=== PATIENT | male | born 1935 | race Caucasian/White ===

== ENCOUNTER → 2016-09-18 | Outpatient (REF) | payer MEDICARE, OTHER ==
[~2016-09-18] MED LIST: /WARF25TA; ACET65TA; ALTA1CAP2 PO; ASPI325T28 PO; ASPI81CH; BABY81CH; CARV6.25 PO; COUM2.5T11 PO; EYE VITAMIN; HYDR25TA6; KEFL500C; METH10TA PO; NAPR250T; PERC5TAB6 PO; ROSU10TA PO; SPIR25TA2 PO; TRAM100T; TRAM50TA2; TYLE325T5 PO; ZEBE5TAB
[2016-09-18 12:59] LABS: ANION GAP 7 MEQ/L (8-16); BLOOD UREA NITROGEN 15 MG/DL (7-18); CALCIUM LEVEL 8.9 MG/DL (8.8-10.2); CARBON DIOXIDE LEVEL 30 MEQ/L (21-32); CHLORIDE LEVEL 104 MEQ/L (98-107); CREATININE FOR GFR 0.91 MG/DL (0.70-1.30); GLOMERULAR FILTRATION RATE > 60.0 (>35); GLUCOSE, FASTING 75 MG/DL (83-110); SODIUM LEVEL 141 MEQ/L (136-145)
== END | disposition home or self-care (01) ==
LOC: M SFHCADAM 12:05
PROVIDERS: ATTEND Family Medicine
DX: I11.9 Hypertensive heart disease without heart failure (principal)

== ENCOUNTER → 2016-09-29 | Outpatient (CLI) | payer MEDICARE, OTHER ==
--- NOTE | 2016-09-29 12:38 | REP ---
MR BRAIN WITHOUT AND WITH CONTRAST: HISTORY: Vertigo. CONTRAST: ProHance 14.2 mL. COMPARISON: CT 10/23/2013. Areas of increased signal intensity on T2-weighted images are present in the left thalamus. These represent old lacunar infarctions. Areas of increased signal intensity on T2-weighted images are present in the periventricular and subcortical white matter and shawn. This represents small vessel ischemic disease. There is no intraparenchymal hemorrhage, acute infarct, or midline shift. The ventricular system and cortical sulci are dilated consistent with mild volume loss. There is no extracerebral collection. There is no cerebellopontine angle mass. The inner ear structures are normal in appearance. A 5 mm focus of decreased signal intensity on contrast enhanced T1-weighted images is present in the pituitary gland. There is minimal deviation of the infundibulum to the right. The cavernous sinuses, optic chiasm, and hypothalamus are normal in appearance. The mastoid air cells and sinuses are clear. IMPRESSION: 1. 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 2. Small vessel ischemic disease. 3. Moderate volume loss. 4. There is a 5 mm pituitary microadenoma. MR of the pituitary gland may be helpful for further evaluation. Signed by Sid Silver MD 09/29/2016 12:42 P
== END | disposition home or self-care (01) ==
LOC: M RAD 09:57
PROVIDERS: ATTEND Family Medicine
DX: H81.03 Meniere's disease, bilateral (principal); I73.9 Peripheral vascular disease, unspecified; D44.3 Neoplasm of uncertain behavior of pituitary gland
CPT/HCPCS: 70553; A9576

== ENCOUNTER → 2016-10-14 | Outpatient (CLI) | payer MEDICARE, OTHER ==
--- NOTE | 2016-10-14 18:22 | REP ---
MRI BRAIN WITHOUT AND WITH CONTRAST: HISTORY: Pituitary microadenoma. CONTRAST: ProHance 10 mL. COMPARISON: 09/29/2016 Areas of increased signal intensity on T2-weighted images are present in the left thalamus. These represent old lacunar infarctions. Areas of increased signal intensity on T2-weighted images are present in the periventricular and subcortical white matter and shawn. This represents small vessel ischemic disease. There is no intraparenchymal hemorrhage, infarct, or midline shift. The ventricular system and cortical sulci are dilated consistent with mild volume loss. There is no extracerebral collection. A 5 mm focus of slight increased signal intensity on unenhanced T1-weighted images is present in the left side of the pituitary gland. This represents a microadenoma. The microadenoma is slightly decreased in signal intensity on contrast enhanced T1 weighted images. There is minimal extension into the suprasellar cistern. There is minimal deviation of the infundibulum to the right. The pituitary gland is normal in size measuring 8 mm in height. The cavernous sinuses, optic chiasm and hypothalamus are normal in appearance. The sinuses are clear. IMPRESSION: 1. 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 2. Small vessel ischemic disease. 3. Mild volume loss. 4. There is a 5 mm pituitary microadenoma. Signed by Sid Silver MD 10/15/2016 08:17 A
== END ==
LOC: M RAD 15:15
PROVIDERS: ATTEND Family Medicine
DX: D35.2 Benign neoplasm of pituitary gland (principal)
CPT/HCPCS: 70553; A9576

== ENCOUNTER → 2016-11-19 | Outpatient (REF) | payer MEDICARE, OTHER ==
[2016-11-19 16:48] LABS: FREE T4 0.62 NG/DL (0.76-1.46)
== END ==
LOC: M SFHCPLAZ 13:15
PROVIDERS: ATTEND Family Medicine
DX: D34 Benign neoplasm of thyroid gland (principal)

== ENCOUNTER → 2016-12-02 | Outpatient (REF) | payer MEDICARE, OTHER ==
[~2016-12-02] MED LIST changes: +CRES10TA32 PO; -ROSU10TA PO
[2016-12-02 12:30] LABS: MEAN CORPUSCULAR HEMOGLOBIN 29.9 pg (27.0-33.0); MEAN CORPUSCULAR HGB CONC 32.3 g/dl (32.0-36.5); MEAN CORPUSCULAR VOLUME 92.8 fl (80.0-96.0); RED CELL DISTRIBUTION WIDTH 12.9 % (11.5-14.5); RETIC HEMOGLOBIN CONTENT CHr 31.3 PG (24-36); RETICULOCYTE % ADVIA2120 1.4 % (0.5-1.5); WHITE BLOOD COUNT 4.8 K/mm3 (4.0-10.0)
[2016-12-02 12:42] LABS: ALBUMIN 4.1 GM/DL (3.2-5.2); ALBUMIN/GLOBULIN RATIO 1.32 (1.00-1.93); ALKALINE PHOSPHATASE 104 U/L (45-117); ALT/SGPT 25 U/L (12-78); ANION GAP 9 MEQ/L (8-16); AST/SGOT 18 U/L (15-37); BILIRUBIN,TOTAL 0.4 MG/DL (0.2-1.0); BLOOD UREA NITROGEN 13 MG/DL (7-18); CALCIUM LEVEL 8.8 MG/DL (8.8-10.2); CARBON DIOXIDE LEVEL 27 MEQ/L (21-32); CHLORIDE LEVEL 107 MEQ/L (98-107); CREATININE FOR GFR 0.96 MG/DL (0.70-1.30); FERRITIN 41 NG/ML (26-388); GLOMERULAR FILTRATION RATE > 60.0 (>35); GLUCOSE, FASTING 90 MG/DL (83-110); PERCENT SATURATION 27.8 % (19.7-37.4); POTASSIUM SERUM 4.3 MEQ/L (3.5-5.1); SODIUM LEVEL 143 MEQ/L (136-145); TOTAL IRON BINDING CAPACITY 374 UG/DL (250-450); TOTAL PROTEIN 7.2 GM/DL (6.4-8.2)
[2016-12-02 12:46] LABS: PROLACTIN 6.5 NG/ML (2.1-17.7)
[2016-12-02 12:47] LABS: FOLATE 22.4 NG/ML (>5.4); VITAMIN B12 LEVEL 243 PG/ML (247-911)
== END ==
LOC: M SFHCADAM 09:15
PROVIDERS: ATTEND Family Medicine
DX: D35.2 Benign neoplasm of pituitary gland (principal); D64.9 Anemia, unspecified; I11.9 Hypertensive heart disease without heart failure; R73.03 Prediabetes
CPT/HCPCS: 80053; 80061; 82024; 82607; 82728; 82746; 83003; 83036; 83550; 84146; 85027; 85046; G0463

== ENCOUNTER → 2016-12-28 | Outpatient (REF) | payer MEDICARE, OTHER ==
[2016-12-28 13:07] LABS: FREE T4 0.72 NG/DL (0.76-1.46)
== END ==
LOC: M LABDRWAD 12:18
PROVIDERS: ATTEND Internal Medicine Endocrinology, Diabetes & Metabolism
DX: E05.90 Thyrotoxicosis, unspecified without thyrotoxic crisis or storm (principal)

== ENCOUNTER → 2017-02-24 | Outpatient (REF) | payer MEDICARE, OTHER ==
[~2017-02-24] MED LIST changes: -COUM2.5T11 PO; +COUM2.5T17 PO; +METH25TAB PO; +NITR0.4S14 PO; +PERC5TAB12 PO; -PERC5TAB6 PO
[2017-02-24 15:17] LABS: ALBUMIN 4.1 GM/DL (3.2-5.2); ALBUMIN/GLOBULIN RATIO 1.46 (1.00-1.93); ALKALINE PHOSPHATASE 99 U/L (45-117); ALT/SGPT 25 U/L (12-78); ANION GAP 7 MEQ/L (8-16); AST/SGOT 19 U/L (15-37); BILIRUBIN,TOTAL 0.4 MG/DL (0.2-1.0); BLOOD UREA NITROGEN 16 MG/DL (7-18); CALCIUM LEVEL 8.6 MG/DL (8.8-10.2); CARBON DIOXIDE LEVEL 30 MEQ/L (21-32); CHLORIDE LEVEL 106 MEQ/L (98-107); CHOLESTEROL LEVEL 93 MG/DL (<200); CREATININE FOR GFR 0.95 MG/DL (0.70-1.30); GLOMERULAR FILTRATION RATE > 60.0 (>35); GLUCOSE, FASTING 95 MG/DL (83-110); POTASSIUM SERUM 4.7 MEQ/L (3.5-5.1); SODIUM LEVEL 143 MEQ/L (136-145); TOTAL PROTEIN 6.9 GM/DL (6.4-8.2); TRIGLYCERIDES LEVEL 119 MG/DL (<150)
== END ==
LOC: M SFHCADAM 08:44
PROVIDERS: ATTEND Family Medicine
DX: E78.2 Mixed hyperlipidemia (principal); D34 Benign neoplasm of thyroid gland

== ENCOUNTER → 2017-03-03 | Outpatient (REF) | payer MEDICARE, OTHER ==
[2017-03-03 13:11] LABS: FREE T4 0.89 NG/DL (0.76-1.46)
== END ==
LOC: M SFHCADAM 08:46
PROVIDERS: ATTEND Family Medicine
DX: E04.9 Nontoxic goiter, unspecified (principal); D34 Benign neoplasm of thyroid gland
CPT/HCPCS: 84439; 84443; G0463

== ENCOUNTER 2017-04-15 06:31 | Outpatient (CLI) | payer MEDICARE, OTHER ==
[~2017-04-15] VITALS: Ht 188 cm; Wt 99.8 kg
[2017-04-15] MEDS ORDERED: NS 1,000 ML IV SCH (07:00)
[2017-04-15] MEDS ORDERED: PROPOFOL 200 MG/20 ML VIAL As Ordered ONE (07:02)
[2017-04-15] MEDS ORDERED: LIDOCAINE 2% INJ 100 MG/5 ML SDV (FOR ANES.) As Ordered ONE (07:04)
[2017-04-15 07:52] VITALS: BP 112/64
--- NOTE | 2017-04-15 07:52 | ROOR ---
Patient Name: Jesse Henderson Procedure Date: 04/15/2017 7:32 AM Date of : 1935 Age: 81 Room: [facility] Gender: Male Note Status: Finalized Procedure: Colonoscopy Indications: High risk colon cancer surveillance: Personal history of colonic polyps, Last colonoscopy: March 2014 Providers: Owen CAZARES MD Referring MD: Liam Torres MD Requesting Provider: Medicines: Monitored Anesthesia Care Complications: No immediate complications. Procedure: Pre-Anesthesia Assessment: - The heart rate, respiratory rate, oxygen saturations, blood pressure, adequacy of pulmonary ventilation, and response to care were monitored throughout the procedure. The Colonoscope was introduced through the anus and advanced to the cecum, identified by appendiceal orifice and ileocecal valve. The colonoscopy was performed without difficulty. The patient tolerated the procedure well. The quality of the bowel preparation was good. Findings: The perianal and digital rectal examinations were normal. Two sessile polyps were found in the sigmoid colon and hepatic flexure. The polyps were 4 to 5 mm in size. These polyps were removed with a cold snare. Resection and retrieval were complete. Multiple medium-mouthed diverticula were found in the sigmoid colon. Internal hemorrhoids were found during retroflexion. The hemorrhoids were medium-sized. The exam was otherwise without abnormality on direct and retroflexion views. Impression: - Two 4 to 5 mm polyps in the sigmoid colon and at the hepatic flexure, removed with a cold snare. Resected and retrieved. - Moderate diverticulosis in the sigmoid colon. - Internal hemorrhoids. - The examination was otherwise normal on direct and retroflexion views. Recommendation: - Repeat colonoscopy (depending on health status) in 5 years for surveillance. Owen Cazares MD Owen CAZARES MD 04/15/2017 7:51:30 AM This report has been signed electronically. Number of Addenda: 0 Note Initiated On: 04/15/2017 7:32 AM Estimated Blood Loss: Estimated blood loss: none.
== END 2017-04-15 08:22 | disposition home or self-care (01) ==
LOC: M OPP 06:31
PROVIDERS: ATTEND Internal Medicine Gastroenterology
DX: Z12.11 Encounter for screening for malignant neoplasm of colon (principal); D12.5 Benign neoplasm of sigmoid colon; D12.3 Benign neoplasm of transverse colon; K64.8 Other hemorrhoids; K57.30 Diverticulosis of large intestine without perforation or abscess without bleeding; I10 Essential (primary) hypertension; E87.5 Hyperkalemia; E03.9 Hypothyroidism, unspecified; I25.2 Old myocardial infarction; M19.90 Unspecified osteoarthritis, unspecified site; Z85.46 Personal history of malignant neoplasm of prostate; Z95.5 Presence of coronary angioplasty implant and graft; Z87.891 Personal history of nicotine dependence; Z79.82 Long term (current) use of aspirin; Z79.899 Other long term (current) drug therapy

== ENCOUNTER → 2017-07-05 | Outpatient (REF) | payer MEDICARE, OTHER ==
[2017-07-05 13:00] LABS: MEAN CORPUSCULAR HEMOGLOBIN 29.9 pg (27.0-33.0); MEAN CORPUSCULAR HGB CONC 31.6 g/dl (32.0-36.5); MEAN CORPUSCULAR VOLUME 94.5 fl (80.0-96.0); PLATELET COUNT, AUTOMATED 174 10^3/uL (150-450); RED CELL DISTRIBUTION WIDTH 13.4 % (11.5-14.5); WHITE BLOOD COUNT 5.2 10^3/uL (4.0-10.0)
[2017-07-05 13:21] LABS: VITAMIN B12 LEVEL 1218 PG/ML (247-911)
[2017-07-05 13:38] LABS: ALBUMIN 3.8 GM/DL (3.2-5.2); ALBUMIN/GLOBULIN RATIO 1.27 (1.00-1.93); ALKALINE PHOSPHATASE 86 U/L (45-117); ALT/SGPT 28 U/L (12-78); ANION GAP 5 MEQ/L (8-16); AST/SGOT 18 U/L (7-37); BILIRUBIN,TOTAL 0.5 MG/DL (0.2-1.0); BLOOD UREA NITROGEN 15 MG/DL (7-18); CALCIUM LEVEL 8.8 MG/DL (8.8-10.2); CARBON DIOXIDE LEVEL 30 MEQ/L (21-32); CHLORIDE LEVEL 107 MEQ/L (98-107); CREATININE FOR GFR 0.84 MG/DL (0.70-1.30); FREE T4 1.27 NG/DL (0.76-1.46); GLOMERULAR FILTRATION RATE > 60.0 (>35); GLUCOSE, FASTING 94 MG/DL (83-110); POTASSIUM SERUM 4.6 MEQ/L (3.5-5.1); SODIUM LEVEL 142 MEQ/L (136-145); TOTAL PROTEIN 6.8 GM/DL (6.4-8.2)
== END ==
LOC: M SFHCADAM 09:21
PROVIDERS: ATTEND Family Medicine
DX: D51.8 Other vitamin B12 deficiency anemias (principal); I25.10 Atherosclerotic heart disease of native coronary artery without angina pectoris; E04.9 Nontoxic goiter, unspecified

== ENCOUNTER → 2017-09-27 | Outpatient (REF) | payer MEDICARE, OTHER ==
[2017-09-27 20:09] LABS: ANION GAP 8 MEQ/L (8-16); BLOOD UREA NITROGEN 14 MG/DL (7-18); CALCIUM LEVEL 8.9 MG/DL (8.8-10.2); CARBON DIOXIDE LEVEL 28 MEQ/L (21-32); CHLORIDE LEVEL 105 MEQ/L (98-107); CREATININE FOR GFR 0.94 MG/DL (0.70-1.30); GLOMERULAR FILTRATION RATE > 60.0 (>35); GLUCOSE, FASTING 111 MG/DL (70-100); POTASSIUM SERUM 4.4 MEQ/L (3.5-5.1); SODIUM LEVEL 141 MEQ/L (136-145)
== END ==
LOC: M SFHCADAM 13:45
DX: D34 Benign neoplasm of thyroid gland (principal)
CPT/HCPCS: 80048

== ENCOUNTER → 2017-10-06 | Outpatient (CLI) | payer MEDICARE, OTHER ==
[~2017-10-06] MED LIST changes: -/WARF25TA; -ACET65TA; -ALTA1CAP2 PO; -ASPI325T28 PO; -ASPI81CH; -BABY81CH; -CARV6.25 PO; -COUM2.5T17 PO; -CRES10TA32 PO; -EYE VITAMIN; -HYDR25TA6; -KEFL500C; -METH10TA PO; -METH25TAB PO; -NAPR250T; -NITR0.4S14 PO; -PERC5TAB12 PO; +PROHANCE 279.3MG/ML 5ML VIAL (A9576) As Ordered; -SPIR25TA2 PO; -TRAM100T; -TRAM50TA2; -TYLE325T5 PO; -ZEBE5TAB
== END ==
LOC: M RAD 11:07
DX: Z86.73 Personal history of transient ischemic attack (TIA), and cerebral infarction without residual deficits (principal); I67.82 Cerebral ischemia
CPT/HCPCS: A9576

== ENCOUNTER → 2018-01-26 | Outpatient (REF) | payer MEDICARE, OTHER ==
[2018-01-26 12:36] LABS: HEMATOCRIT 41.8 % (42.0-52.0); HEMOGLOBIN 13.4 g/dl (13.5-17.5); MEAN CORPUSCULAR HEMOGLOBIN 29.8 pg (27.0-33.0); MEAN CORPUSCULAR HGB CONC 32.1 g/dl (32.0-36.5); MEAN CORPUSCULAR VOLUME 92.9 fl (80.0-96.0); PLATELET COUNT, AUTOMATED 174 10^3/uL (150-450); RED CELL DISTRIBUTION WIDTH 14.1 % (11.5-14.5); WHITE BLOOD COUNT 6.2 10^3/uL (4.0-10.0)
[2018-01-26 13:02] LABS: ALBUMIN 4.2 GM/DL (3.2-5.2); ALKALINE PHOSPHATASE 93 U/L (45-117); ALT/SGPT 23 U/L (12-78); ANION GAP 7 MEQ/L (8-16); AST/SGOT 21 U/L (7-37); BILIRUBIN,TOTAL 0.4 MG/DL (0.2-1.0); BLOOD UREA NITROGEN 16 MG/DL (7-18); CALCIUM LEVEL 8.9 MG/DL (8.8-10.2); CARBON DIOXIDE LEVEL 28 MEQ/L (21-32); CHLORIDE LEVEL 109 MEQ/L (98-107); CHOLESTEROL LEVEL 96 MG/DL (<200); CHOLESTEROL RISK RATIO 2.341 (<5); CREATININE FOR GFR 0.84 MG/DL (0.70-1.30); FREE T4 0.86 NG/DL (0.76-1.46); GLOMERULAR FILTRATION RATE > 60.0 (>35); GLUCOSE, FASTING 91 MG/DL (70-100); HDL CHOLESTEROL 41 MG/DL (>40); LDL CHOLESTEROL 28.4 MG/DL (<100); NON-HDL-C 55 MG/DL; POTASSIUM SERUM 4.9 MEQ/L (3.5-5.1); SODIUM LEVEL 144 MEQ/L (136-145); THYROID STIMULATING HORMONE 0.329 uIU/ML (0.358-3.740); TRIGLYCERIDES LEVEL 133 MG/DL (<150)
== END ==
LOC: M SFHCADAM 10:09
DX: I25.10 Atherosclerotic heart disease of native coronary artery without angina pectoris (principal); E05.90 Thyrotoxicosis, unspecified without thyrotoxic crisis or storm; E78.2 Mixed hyperlipidemia
CPT/HCPCS: 84443

== ENCOUNTER 2018-04-18 09:28 | Emergency (ER) | payer MEDICARE, OTHER | END 2018-04-18 10:33 | disposition home or self-care (01) | LOC: M ED 09:28 | DX: M19.011 Primary osteoarthritis, right shoulder (principal); I25.2 Old myocardial infarction; I10 Essential (primary) hypertension; E05.90 Thyrotoxicosis, unspecified without thyrotoxic crisis or storm; Z85.46 Personal history of malignant neoplasm of prostate; Z87.891 Personal history of nicotine dependence; Z79.82 Long term (current) use of aspirin; Z79.899 Other long term (current) drug therapy; Z88.8 Allergy status to other drugs, medicaments and biological substances | CPT/HCPCS: 73030 ==

== ENCOUNTER → 2018-04-21 | Outpatient (REF) | payer MEDICARE, OTHER ==
[2018-04-21 20:53] LABS: BASO % 0.5 % (0.0-1.0); EOS # 0.1 10^3/uL (0.0-0.50); EOS % 2.5 % (0.0-3.0); HEMATOCRIT 42.3 % (42.0-52.0); HEMOGLOBIN 13.6 g/dl (13.5-17.5); IMMATURE GRANULOCYTE % 0.2 % (0-3.0); LYMPH # 1.4 10^3/uL (1.5-4.5); LYMPH % 25.4 % (24.0-44.0); MEAN CORPUSCULAR HEMOGLOBIN 30.2 pg (27.0-33.0); MEAN CORPUSCULAR HGB CONC 32.2 g/dl (32.0-36.5); MONO # 0.4 10^3/uL (0.0-0.8); MONO % 7.8 % (0.0-5.0); NEUTROPHILS # 3.6 10^3/uL (1.8-7.7); NEUTROPHILS % 63.6 % (36.0-66.0); PLATELET COUNT, AUTOMATED 173 10^3/uL (150-450); RED CELL DISTRIBUTION WIDTH 12.5 % (11.5-14.5); WHITE BLOOD COUNT 5.6 10^3/uL (4.0-10.0)
[2018-04-21 21:05] LABS: ALBUMIN 4.1 GM/DL (3.2-5.2); ALBUMIN/GLOBULIN RATIO 1.24 (1.00-1.93); ALKALINE PHOSPHATASE 72 U/L (45-117); ALT/SGPT 22 U/L (12-78); AST/SGOT 17 U/L (7-37); BILIRUBIN,DIRECT 0.2 MG/DL (0.0-0.2); BILIRUBIN,TOTAL 0.5 MG/DL (0.2-1.0); FREE T3 3.4 PG/ML (2.2-4.0); FREE T4 0.79 NG/DL (0.76-1.46); THYROID STIMULATING HORMONE 0.321 uIU/ML (0.358-3.740); TOTAL PROTEIN 7.4 GM/DL (6.4-8.2)
== END ==
LOC: M LAB REF 20:06
DX: E05.90 Thyrotoxicosis, unspecified without thyrotoxic crisis or storm (principal)
CPT/HCPCS: 84443

== ENCOUNTER → 2018-09-08 | Outpatient (REF) | payer MEDICARE, OTHER ==
[~2018-09-08] MED LIST changes: +ACET-716 PO; +ACET65TA; +ALTA1CAP2 PO; +ASPI-222 PO; +ASPI81CH49; +BABY81CH; +CARV6.25 PO; +COUM1TAB18; +COUM2.5T17 PO; +CRES10TA PO; +EYE VITAMIN; +HYDR25TA6; +KEFL500C; +METH10TA PO; +METH25TAB PO; +NAPR250T; +NITR0.4S14 PO; +PERC5TAB12 PO; -PROHANCE 279.3MG/ML 5ML VIAL (A9576) As Ordered; +SPIR-10 PO; +TRAM100T; +TRAM50TA2; +TYLE325T5 PO; +ZEBE5TAB
== END ==
LOC: M SFHCPLAZ 17:48
PROVIDERS: ATTEND Dermatology
DX: D23.21 Other benign neoplasm of skin of right ear and external auricular canal (principal)

== ENCOUNTER → 2019-01-19 | Outpatient (REF) | payer MEDICARE, OTHER ==
[2019-01-19 13:09] LABS: HEMATOCRIT 40.8 % (42.0-52.0); HEMOGLOBIN 12.9 g/dl (13.5-17.5); MEAN CORPUSCULAR HEMOGLOBIN 30.4 pg (27.0-33.0); MEAN CORPUSCULAR HGB CONC 31.6 g/dl (32.0-36.5); PLATELET COUNT, AUTOMATED 167 10^3/uL (150-450); RED BLOOD COUNT 4.25 10^6/uL (4.30-6.10); WHITE BLOOD COUNT 5.2 10^3/uL (4.0-10.0)
[2019-01-19 13:48] LABS: ALBUMIN 3.8 GM/DL (3.2-5.2); ALT/SGPT 18 U/L (12-78); BILIRUBIN,TOTAL 0.5 MG/DL (0.2-1.0); BLOOD UREA NITROGEN 17 MG/DL (7-18); CALCIUM LEVEL 8.5 MG/DL (8.8-10.2); CARBON DIOXIDE LEVEL 27 MEQ/L (21-32); CHLORIDE LEVEL 108 MEQ/L (98-107); CHOLESTEROL LEVEL 86 MG/DL (<200); CREATININE FOR GFR 0.84 MG/DL (0.70-1.30); FREE T4 0.78 NG/DL (0.76-1.46); GLOMERULAR FILTRATION RATE > 60.0 (>35); GLUCOSE, FASTING 95 MG/DL (70-100); HDL CHOLESTEROL 43 MG/DL (>40); LDL CHOLESTEROL 28 MG/DL (<100); NON-HDL-C 43 MG/DL; POTASSIUM SERUM 4.8 MEQ/L (3.5-5.1); PROSTATIC SPECIFIC AG MONITOR 0.91 NG/ML (< 4.00); SODIUM LEVEL 142 MEQ/L (136-145); THYROID STIMULATING HORMONE 0.327 uIU/ML (0.358-3.740); TOTAL PROTEIN 6.9 GM/DL (6.4-8.2); TRIGLYCERIDES LEVEL 77 MG/DL (<150)
== END ==
LOC: M SFHCADAM 08:04
PROVIDERS: ATTEND Family Medicine
DX: I25.10 Atherosclerotic heart disease of native coronary artery without angina pectoris (principal); E78.2 Mixed hyperlipidemia; E04.9 Nontoxic goiter, unspecified; E05.90 Thyrotoxicosis, unspecified without thyrotoxic crisis or storm; C61 Malignant neoplasm of prostate

== ENCOUNTER → 2019-03-09 | Outpatient (REF) | payer MEDICARE, OTHER ==
[2019-03-09 13:38] LABS: FREE T4 0.97 NG/DL (0.76-1.46); THYROID STIMULATING HORMONE 0.009 uIU/ML (0.358-3.740)
== END ==
LOC: M SFHCADAM 07:52
PROVIDERS: ATTEND Family Medicine
DX: E04.9 Nontoxic goiter, unspecified (principal); E05.90 Thyrotoxicosis, unspecified without thyrotoxic crisis or storm

== ENCOUNTER → 2019-07-18 | Outpatient (REF) | payer MEDICARE, OTHER ==
[~2019-07-18] MED LIST changes: -ASPI-222 PO; +ASPI-527 PO
[2019-07-18 12:44] LABS: HEMATOCRIT 40.4 % (42.0-52.0); HEMOGLOBIN 12.7 g/dl (13.5-17.5); MEAN CORPUSCULAR HEMOGLOBIN 29.5 pg (27.0-33.0); MEAN CORPUSCULAR HGB CONC 31.4 g/dl (32.0-36.5); MEAN CORPUSCULAR VOLUME 93.7 fl (80.0-96.0); PLATELET COUNT, AUTOMATED 156 10^3/uL (150-450); RED BLOOD COUNT 4.31 10^6/uL (4.30-6.10); WHITE BLOOD COUNT 5.5 10^3/uL (4.0-10.0)
[2019-07-18 13:03] LABS: ALBUMIN 3.8 GM/DL (3.2-5.2); ALT/SGPT 20 U/L (12-78); BILIRUBIN,TOTAL 0.6 MG/DL (0.2-1.0); BLOOD UREA NITROGEN 17 MG/DL (7-18); CALCIUM LEVEL 8.7 MG/DL (8.8-10.2); CARBON DIOXIDE LEVEL 29 MEQ/L (21-32); CHLORIDE LEVEL 105 MEQ/L (98-107); CREATININE FOR GFR 0.84 MG/DL (0.70-1.30); FREE T4 1.02 NG/DL (0.76-1.46); GLOMERULAR FILTRATION RATE > 60.0 (>35); GLUCOSE, FASTING 116 MG/DL (70-100); POTASSIUM SERUM 4.4 MEQ/L (3.5-5.1); SODIUM LEVEL 141 MEQ/L (136-145); THYROID STIMULATING HORMONE < 0.005 uIU/ML (0.358-3.740)
== END ==
LOC: M LAB REF 12:18
PROVIDERS: ATTEND Family Medicine
DX: E04.9 Nontoxic goiter, unspecified (principal); I25.10 Atherosclerotic heart disease of native coronary artery without angina pectoris; I11.9 Hypertensive heart disease without heart failure

== ENCOUNTER → 2019-08-29 | Outpatient (REF) | payer MEDICARE, OTHER ==
[2019-08-29 14:08] LABS: FREE T4 1.36 NG/DL (0.76-1.46); THYROID STIMULATING HORMONE < 0.005 uIU/ML (0.358-3.740)
== END ==
LOC: M SFHCADAM 08:39
PROVIDERS: ATTEND Family Medicine
DX: E04.9 Nontoxic goiter, unspecified (principal)

== ENCOUNTER → 2020-01-31 | Outpatient (REF) | payer MEDICARE, OTHER ==
[2020-01-31 13:17] LABS: HEMATOCRIT 37.6 % (42.0-52.0); MEAN CORPUSCULAR HEMOGLOBIN 29.7 pg (27.0-33.0); MEAN CORPUSCULAR HGB CONC 31.9 g/dl (32.0-36.5); MEAN CORPUSCULAR VOLUME 93.1 fl (80.0-96.0); PLATELET COUNT, AUTOMATED 172 10^3/uL (150-450); RED BLOOD COUNT 4.04 10^6/uL (4.30-6.10)
[2020-01-31 13:56] LABS: ALBUMIN 3.7 GM/DL (3.2-5.2); ALT/SGPT 32 U/L (12-78); BILIRUBIN,TOTAL 0.5 MG/DL (0.2-1.0); BLOOD UREA NITROGEN 15 MG/DL (7-18); CARBON DIOXIDE LEVEL 27 MEQ/L (21-32); CHLORIDE LEVEL 109 MEQ/L (98-107); CHOLESTEROL LEVEL 83 MG/DL (<200); CHOLESTEROL RISK RATIO 2.075 (<5); CREATININE FOR GFR 0.86 MG/DL (0.70-1.30); FREE T4 1.43 NG/DL (0.76-1.46); GLOMERULAR FILTRATION RATE > 60.0 (>35); GLUCOSE, FASTING 94 MG/DL (70-100); HDL CHOLESTEROL 40 MG/DL (>40); LDL CHOLESTEROL 29 MG/DL (<100); NON-HDL-C 43 MG/DL; POTASSIUM SERUM 4.8 MEQ/L (3.5-5.1); PROSTATIC SPECIFIC AG MONITOR 1.09 NG/ML (< 4.00); SODIUM LEVEL 142 MEQ/L (136-145); THYROID STIMULATING HORMONE < 0.005 uIU/ML (0.358-3.740); TOTAL PROTEIN 6.7 GM/DL (6.4-8.2); TRIGLYCERIDES LEVEL 69 MG/DL (<150)
== END ==
LOC: M SFHCADAM 11:08
PROVIDERS: ATTEND Family Medicine
DX: I25.10 Atherosclerotic heart disease of native coronary artery without angina pectoris (principal); I11.9 Hypertensive heart disease without heart failure; E04.9 Nontoxic goiter, unspecified; E78.2 Mixed hyperlipidemia; C61 Malignant neoplasm of prostate; I48.0 Paroxysmal atrial fibrillation

== ENCOUNTER → 2020-01-31 | Outpatient (REF) | payer MEDICARE, OTHER ==
[2020-01-31 13:22] LABS: HEMATOCRIT 38.5 % (42.0-52.0); HEMOGLOBIN 12.3 g/dl (13.5-17.5); MEAN CORPUSCULAR HEMOGLOBIN 29.9 pg (27.0-33.0); MEAN CORPUSCULAR HGB CONC 31.9 g/dl (32.0-36.5); MEAN CORPUSCULAR VOLUME 93.7 fl (80.0-96.0); PLATELET COUNT, AUTOMATED 180 10^3/uL (150-450); RED BLOOD COUNT 4.11 10^6/uL (4.30-6.10)
[2020-01-31 13:56] LABS: BLOOD UREA NITROGEN 16 MG/DL (7-18); CREATININE FOR GFR 0.81 MG/DL (0.70-1.30); GLUCOSE, FASTING 91 MG/DL (70-100)
[2020-01-31 13:57] LABS: CALCIUM LEVEL 9.3 MG/DL (8.8-10.2); CARBON DIOXIDE LEVEL 27 MEQ/L (21-32); CHLORIDE LEVEL 108 MEQ/L (98-107); GLOMERULAR FILTRATION RATE > 60.0 (>35); MAGNESIUM LEVEL 2.1 MG/DL (1.8-2.4); POTASSIUM SERUM 4.8 MEQ/L (3.5-5.1); SODIUM LEVEL 140 MEQ/L (136-145); THYROID STIMULATING HORMONE < 0.005 uIU/ML (0.358-3.740)
== END ==
LOC: M LABDRWAD 12:52
PROVIDERS: ATTEND Physician Assistant
DX: I48.0 Paroxysmal atrial fibrillation (principal)

== ENCOUNTER → 2020-03-01 | Outpatient (REF) | payer MEDICARE, OTHER ==
[2020-03-01 12:54] LABS: HEMATOCRIT 41.7 % (42.0-52.0); HEMOGLOBIN 13.1 g/dl (13.5-17.5); MEAN CORPUSCULAR HEMOGLOBIN 29.6 pg (27.0-33.0); MEAN CORPUSCULAR HGB CONC 31.4 g/dl (32.0-36.5); MEAN CORPUSCULAR VOLUME 94.1 fl (80.0-96.0); PLATELET COUNT, AUTOMATED 180 10^3/uL (150-450); RED BLOOD COUNT 4.43 10^6/uL (4.30-6.10); WHITE BLOOD COUNT 5.6 10^3/uL (4.0-10.0)
== END ==
LOC: M LABDRWAD 12:33
PROVIDERS: ATTEND Physician Assistant
DX: I48.0 Paroxysmal atrial fibrillation (principal)

== ENCOUNTER → 2020-08-02 | Outpatient (REF) | payer MEDICARE, OTHER ==
[2020-08-02 11:54] LABS: HEMATOCRIT 43.3 % (42.0-52.0); HEMOGLOBIN 13.7 g/dl (13.5-17.5); MEAN CORPUSCULAR HEMOGLOBIN 30.4 pg (27.0-33.0); MEAN CORPUSCULAR HGB CONC 31.6 g/dl (32.0-36.5); MEAN CORPUSCULAR VOLUME 96.2 fl (80.0-96.0); PLATELET COUNT, AUTOMATED 182 10^3/uL (150-450); WHITE BLOOD COUNT 7.5 10^3/uL (4.0-10.0)
[2020-08-02 12:14] LABS: ALBUMIN 3.8 GM/DL (3.2-5.2); ALT/SGPT 31 U/L (12-78); BILIRUBIN,TOTAL 0.5 MG/DL (0.2-1.0); BLOOD UREA NITROGEN 20 MG/DL (7-18); CALCIUM LEVEL 9.4 MG/DL (8.8-10.2); CARBON DIOXIDE LEVEL 28 MEQ/L (21-32); CHLORIDE LEVEL 106 MEQ/L (98-107); CHOLESTEROL LEVEL 88 MG/DL (<200); CHOLESTEROL RISK RATIO 1.833 (<5); CREATININE FOR GFR 1.06 MG/DL (0.70-1.30); FREE T4 0.81 NG/DL (0.76-1.46); GLOMERULAR FILTRATION RATE > 60.0 (>35); GLUCOSE, FASTING 90 MG/DL (70-100); HDL CHOLESTEROL 48 MG/DL (>40); LDL CHOLESTEROL 29 MG/DL (<100); NON-HDL-C 40 MG/DL; POTASSIUM SERUM 4.4 MEQ/L (3.5-5.1); PROSTATIC SPECIFIC AG MONITOR 1.28 NG/ML (< 4.00); SODIUM LEVEL 138 MEQ/L (136-145); THYROID STIMULATING HORMONE 0.982 uIU/ML (0.358-3.740); TOTAL PROTEIN 7.1 GM/DL (6.4-8.2); TRIGLYCERIDES LEVEL 56 MG/DL (<150)
== END ==
LOC: M SFHCADAM 09:11
PROVIDERS: ATTEND Family Medicine
DX: I48.0 Paroxysmal atrial fibrillation (principal); I11.9 Hypertensive heart disease without heart failure; E04.9 Nontoxic goiter, unspecified; E05.90 Thyrotoxicosis, unspecified without thyrotoxic crisis or storm; E78.2 Mixed hyperlipidemia; C61 Malignant neoplasm of prostate

== ENCOUNTER → 2021-03-03 | Outpatient (REF) | payer MEDICARE, OTHER ==
[2021-03-03 12:37] LABS: HEMATOCRIT 39.8 % (42.0-52.0); HEMOGLOBIN 12.6 g/dl (13.5-17.5); MEAN CORPUSCULAR HEMOGLOBIN 30.1 pg (27.0-33.0); MEAN CORPUSCULAR HGB CONC 31.7 g/dl (32.0-36.5); MEAN CORPUSCULAR VOLUME 95.2 fl (80.0-96.0); PLATELET COUNT, AUTOMATED 163 10^3/uL (150-450); RED BLOOD COUNT 4.18 10^6/uL (4.30-6.10); WHITE BLOOD COUNT 5.6 10^3/uL (4.0-10.0)
[2021-03-03 13:21] LABS: ALBUMIN 3.9 GM/DL (3.2-5.2); ALT/SGPT 31 U/L (12-78); BILIRUBIN,TOTAL 0.4 MG/DL (0.2-1.0); BLOOD UREA NITROGEN 15 MG/DL (7-18); CARBON DIOXIDE LEVEL 28 MEQ/L (21-32); CHLORIDE LEVEL 108 MEQ/L (98-107); CHOLESTEROL LEVEL 90 MG/DL (<200); CHOLESTEROL RISK RATIO 2.045 (<5); CREATININE FOR GFR 0.79 MG/DL (0.70-1.30); FREE T4 0.78 NG/DL (0.76-1.46); GLOMERULAR FILTRATION RATE > 60.0 (>35); GLUCOSE, FASTING 99 MG/DL (70-100); HDL CHOLESTEROL 44 MG/DL (>40); LDL CHOLESTEROL 34 MG/DL (<100); NON-HDL-C 46 MG/DL; POTASSIUM SERUM 4.8 MEQ/L (3.5-5.1); PROSTATIC SPECIFIC AG MONITOR 1.33 NG/ML (< 4.00); SODIUM LEVEL 140 MEQ/L (136-145); THYROID STIMULATING HORMONE 0.294 uIU/ML (0.358-3.740); TOTAL PROTEIN 6.9 GM/DL (6.4-8.2); TRIGLYCERIDES LEVEL 61 MG/DL (<150)
== END ==
LOC: M SFHCADAM 09:33
PROVIDERS: ATTEND Family Medicine
DX: I25.10 Atherosclerotic heart disease of native coronary artery without angina pectoris (principal); I11.9 Hypertensive heart disease without heart failure; E05.90 Thyrotoxicosis, unspecified without thyrotoxic crisis or storm; E78.2 Mixed hyperlipidemia; C61 Malignant neoplasm of prostate

== ENCOUNTER → 2021-09-01 | Outpatient (REF) | payer MEDICARE, OTHER ==
[2021-09-01 13:08] LABS: HEMATOCRIT 39.8 % (42.0-52.0); HEMOGLOBIN 12.7 g/dl (13.5-17.5); MEAN CORPUSCULAR HEMOGLOBIN 30.1 pg (27.0-33.0); MEAN CORPUSCULAR HGB CONC 31.9 g/dl (32.0-36.5); MEAN CORPUSCULAR VOLUME 94.3 fl (80.0-96.0); PLATELET COUNT, AUTOMATED 195 10^3/uL (150-450); RED BLOOD COUNT 4.22 10^6/uL (4.30-6.10); WHITE BLOOD COUNT 5.3 10^3/uL (4.0-10.0)
[2021-09-01 13:41] LABS: ALBUMIN 3.9 GM/DL (3.2-5.2); ALT/SGPT 26 U/L (12-78); BILIRUBIN,TOTAL 0.5 MG/DL (0.2-1.0); BLOOD UREA NITROGEN 14 MG/DL (7-18); CARBON DIOXIDE LEVEL 29 MEQ/L (21-32); CHLORIDE LEVEL 107 MEQ/L (98-107); CHOLESTEROL LEVEL 95 MG/DL (<200); CHOLESTEROL RISK RATIO 2.209 (<5); CREATININE FOR GFR 0.89 MG/DL (0.70-1.30); FREE T4 0.92 NG/DL (0.76-1.46); GLOMERULAR FILTRATION RATE > 60.0 (>35); GLUCOSE, FASTING 104 MG/DL (70-100); HDL CHOLESTEROL 43 MG/DL (>40); LDL CHOLESTEROL 38 MG/DL (<100); NON-HDL-C 52 MG/DL; POTASSIUM SERUM 4.5 MEQ/L (3.5-5.1); PROSTATIC SPECIFIC AG MONITOR 1.57 NG/ML (< 4.00); SODIUM LEVEL 142 MEQ/L (136-145); THYROID STIMULATING HORMONE 0.255 uIU/ML (0.358-3.740); TRIGLYCERIDES LEVEL 68 MG/DL (<150)
== END ==
LOC: M SFHCADAM 12:26
PROVIDERS: ATTEND Family Medicine
DX: L72.3 Sebaceous cyst (principal); I48.0 Paroxysmal atrial fibrillation; E04.9 Nontoxic goiter, unspecified; E05.90 Thyrotoxicosis, unspecified without thyrotoxic crisis or storm; I11.9 Hypertensive heart disease without heart failure; C61 Malignant neoplasm of prostate; E78.2 Mixed hyperlipidemia

== ENCOUNTER → 2021-10-27 | Outpatient (REF) | payer MEDICARE, OTHER | LOC: M LAB REF 08:30 | PROVIDERS: ATTEND Surgery | DX: L72.3 Sebaceous cyst (principal) ==

== ENCOUNTER 2021-12-11 09:37 | Emergency (ER) | payer MEDICARE, OTHER ==
[~2021-12-11] VITALS: Ht 188 cm; Wt 95.5 kg
[2021-12-11 11:30] VITALS: BP 116/76
== END 2021-12-11 12:06 | disposition home or self-care (01) ==
LOC: EDBD 09:37 → M ED 09:37
DX: S70.12XA Contusion of left thigh, initial encounter (principal); W01.198A Fall on same level from slipping, tripping and stumbling with subsequent striking against other object, initial encounter; Y92.512 Supermarket, store or market as the place of occurrence of the external cause; Y93.9 Activity, unspecified; Y99.9 Unspecified external cause status

== ENCOUNTER → 2022-02-25 | Outpatient (REF) | payer MEDICARE, OTHER ==
[2022-02-25 17:30] LABS: ALBUMIN 4.1 GM/DL (3.2-5.2); ALT/SGPT 19 U/L (12-78); BILIRUBIN,TOTAL 0.4 MG/DL (0.2-1.0); BLOOD UREA NITROGEN 16 MG/DL (7-18); CALCIUM LEVEL 9.4 MG/DL (8.8-10.2); CARBON DIOXIDE LEVEL 28 MEQ/L (21-32); CHLORIDE LEVEL 109 MEQ/L (98-107); CHOLESTEROL LEVEL 87 MG/DL (<200); CHOLESTEROL RISK RATIO 2.023 (<5); FREE T4 0.78 NG/DL (0.76-1.46); GLOMERULAR FILTRATION RATE > 60.0 (>35); GLUCOSE, FASTING 117 MG/DL (70-100); HDL CHOLESTEROL 43 MG/DL (>40); LDL CHOLESTEROL 29 MG/DL (<100); NON-HDL-C 44 MG/DL; POTASSIUM SERUM 4.5 MEQ/L (3.5-5.1); PROSTATIC SPECIFIC AG MONITOR 1.57 NG/ML (< 4.00); SODIUM LEVEL 141 MEQ/L (136-145); THYROID STIMULATING HORMONE 0.191 uIU/ML (0.358-3.740); TOTAL PROTEIN 7.3 GM/DL (6.4-8.2); TRIGLYCERIDES LEVEL 76 MG/DL (<150)
[2022-02-25 17:49] LABS: HEMOGLOBIN 12.6 g/dl (13.5-17.5); MEAN CORPUSCULAR HEMOGLOBIN 29.9 pg (27.0-33.0); MEAN CORPUSCULAR HGB CONC 30.7 g/dl (32.0-36.5); MEAN CORPUSCULAR VOLUME 97.2 fl (80.0-96.0); PLATELET COUNT, AUTOMATED 182 10^3/uL (150-450); RED BLOOD COUNT 4.22 10^6/uL (4.30-6.10); WHITE BLOOD COUNT 6.6 10^3/uL (4.0-10.0)
== END ==
LOC: M SFHCADAM 13:34
PROVIDERS: ATTEND Family Medicine
DX: L72.3 Sebaceous cyst (principal); I48.0 Paroxysmal atrial fibrillation; E04.9 Nontoxic goiter, unspecified; E05.90 Thyrotoxicosis, unspecified without thyrotoxic crisis or storm; E78.2 Mixed hyperlipidemia; I11.9 Hypertensive heart disease without heart failure; C61 Malignant neoplasm of prostate

== ENCOUNTER → 2022-09-08 | Outpatient (REF) | payer MEDICARE, OTHER ==
[2022-09-08 14:07] LABS: HEMATOCRIT 38.3 % (42.0-52.0); HEMOGLOBIN 12.2 g/dl (13.5-17.5); MEAN CORPUSCULAR HEMOGLOBIN 30.2 pg (27.0-33.0); MEAN CORPUSCULAR HGB CONC 31.9 g/dl (32.0-36.5); MEAN CORPUSCULAR VOLUME 94.8 fl (80.0-96.0); PLATELET COUNT, AUTOMATED 189 10^3/uL (150-450); RED BLOOD COUNT 4.04 10^6/uL (4.30-6.10); WHITE BLOOD COUNT 6.9 10^3/uL (4.0-10.0)
[2022-09-08 14:41] LABS: MAGNESIUM LEVEL 1.8 MG/DL (1.8-2.4)
[2022-09-08 14:48] LABS: ALBUMIN 3.8 G/DL (3.2-5.2); ALKALINE PHOSPHATASE 105 U/L (46-116); ALT/SGPT 15 U/L (7.0-40); AST/SGOT 19 U/L (<34); BILIRUBIN,TOTAL 0.6 MG/DL (0.3-1.2); BLOOD UREA NITROGEN 11 MG/DL (9-23); CALCIUM LEVEL 8.7 MG/DL (8.3-10.6); CARBON DIOXIDE LEVEL 28 MMOL/L (20-31); CHLORIDE LEVEL 104 MMOL/L (98-107); CHOLESTEROL LEVEL 85 MG/DL (<200); CHOLESTEROL RISK RATIO 2.13 (<5); CREATININE FOR GFR 0.67 MG/DL (0.70-1.30); FOLATE > 24.00 NG/ML (>5.4); GLOMERULAR FILTRATION RATE > 60.0 (>35); GLUCOSE, FASTING 91 MG/DL (74-106); HDL CHOLESTEROL 39.8 MG/DL (>40); LDL CHOLESTEROL 32.4 MG/DL (<100); NON-HDL-C 45 MG/DL; POTASSIUM SERUM 4.4 MMOL/L (3.5-5.1); PROSTATIC SPECIFIC AG MONITOR 1.37 NG/ML (< 4.00); SODIUM LEVEL 140 MMOL/L (136-145); THYROID STIMULATING HORMONE 0.708 uIU/ML (0.55-4.78); TRIGLYCERIDES LEVEL 64 MG/DL (<150); VITAMIN B12 LEVEL 1710 PG/ML (211-911)
[2022-09-08 14:51] LABS: FREE T4 0.82 NG/DL (0.89-1.76)
== END ==
LOC: M SFHCADAM 10:18
PROVIDERS: ATTEND Family Medicine
DX: I25.10 Atherosclerotic heart disease of native coronary artery without angina pectoris (principal); D64.9 Anemia, unspecified; D51.8 Other vitamin B12 deficiency anemias; I48.0 Paroxysmal atrial fibrillation; E78.2 Mixed hyperlipidemia; I11.9 Hypertensive heart disease without heart failure; C61 Malignant neoplasm of prostate

== ENCOUNTER → 2022-10-01 | Outpatient (CLI) | payer MEDICARE, OTHER | LOC: M RAD 14:08 | PROVIDERS: ATTEND Surgery | DX: L97.822 Non-pressure chronic ulcer of other part of left lower leg with fat layer exposed (principal); L97.812 Non-pressure chronic ulcer of other part of right lower leg with fat layer exposed; R68.89 Other general symptoms and signs ==

== ENCOUNTER → 2022-10-27 | Outpatient (POV) | payer MEDICARE, OTHER ==
[~2022-10-27] VITALS: Ht 188 cm; Wt 90.9 kg
[2022-10-27 08:35] VITALS: BP 132/78
== END ==
LOC: M IRPOV 08:26
PROVIDERS: ATTEND Radiology Diagnostic Radiology
DX: L97.319 Non-pressure chronic ulcer of right ankle with unspecified severity (principal); I83.10 Varicose veins of unspecified lower extremity with inflammation; I87.313 Chronic venous hypertension (idiopathic) with ulcer of bilateral lower extremity; I25.2 Old myocardial infarction; Z82.49 Family history of ischemic heart disease and other diseases of the circulatory system; I48.91 Unspecified atrial fibrillation; Z79.01 Long term (current) use of anticoagulants; Z85.46 Personal history of malignant neoplasm of prostate

== ENCOUNTER → 2022-11-17 | Outpatient (CLI) | payer MEDICARE, OTHER | LOC: M RAD 09:48 | PROVIDERS: ATTEND Radiology Diagnostic Radiology | DX: I87.2 Venous insufficiency (chronic) (peripheral) (principal) ==

== ENCOUNTER → 2022-12-15 | Outpatient (POV) | payer MEDICARE, OTHER ==
[~2022-12-15] VITALS: Ht 188 cm; Wt 90.9 kg
[2022-12-15 08:45] VITALS: BP 151/93
== END ==
LOC: M IRPOV 08:14
PROVIDERS: ATTEND Radiology Diagnostic Radiology
DX: I87.2 Venous insufficiency (chronic) (peripheral) (principal); R60.0 Localized edema; Z88.1 Allergy status to other antibiotic agents

== ENCOUNTER → 2023-01-07 | Outpatient (CLI) | payer MEDICARE, OTHER ==
[~2023-01-07] MED LIST changes: +LIDOCAINE 1% MDV 20ML VIAL As Ordered ONE; +LIDOCAINE 2% MDV 20ML VIAL As Ordered ONE; +MIDAZOLAM INJ 2MG/2ML VIAL As Ordered ONE; +NS 1,000 ML IV SCH; +diphenhydrAMINE 50MG/ML VIAL As Ordered ONE; +fentaNYL 100 MCG/2 ML INJECTION As Ordered ONE
[2023-01-07 10:30] VITALS: BP 151/92
== END ==
LOC: M IRPRO 10:16
PROVIDERS: ATTEND Radiology Diagnostic Radiology
DX: I87.311 Chronic venous hypertension (idiopathic) with ulcer of right lower extremity (principal); I87.2 Venous insufficiency (chronic) (peripheral); L97.919 Non-pressure chronic ulcer of unspecified part of right lower leg with unspecified severity
CPT/HCPCS: 93971; J2250; J3010

== ENCOUNTER → 2023-06-02 | Outpatient (REF) | payer MEDICARE, OTHER ==
[~2023-06-02] MED LIST changes: -LIDOCAINE 1% MDV 20ML VIAL As Ordered ONE; -LIDOCAINE 2% MDV 20ML VIAL As Ordered ONE; -MIDAZOLAM INJ 2MG/2ML VIAL As Ordered ONE; -NS 1,000 ML IV SCH; -diphenhydrAMINE 50MG/ML VIAL As Ordered ONE; -fentaNYL 100 MCG/2 ML INJECTION As Ordered ONE
[2023-06-02 13:39] LABS: THYROID STIMULATING HORMONE 0.181 uIU/ML (0.55-4.78)
== END ==
LOC: M SFHCADAM 09:06
PROVIDERS: ATTEND Family Medicine
DX: E05.90 Thyrotoxicosis, unspecified without thyrotoxic crisis or storm (principal)

== ENCOUNTER → 2023-09-29 | Outpatient (REF) | payer MEDICARE, OTHER ==
[2023-09-29 14:54] LABS: FREE T4 1.27 NG/DL (0.89-1.76); IRON (FE) 51 UG/DL (65-175); PERCENT SATURATION 18.5 % (19.7-50.0); THYROID STIMULATING HORMONE 0.008 uIU/ML (0.55-4.78); TOTAL IRON BINDING CAPACITY 275 UG/DL (250-425)
[2023-09-29 14:55] LABS: ALBUMIN 3.7 G/DL (3.2-5.2); ALKALINE PHOSPHATASE 121 U/L (46-116); ALT/SGPT 22 U/L (7.0-40); AST/SGOT 24 U/L (<34); BILIRUBIN,TOTAL 0.7 MG/DL (0.3-1.2); BLOOD UREA NITROGEN 15 MG/DL (9-23); CARBON DIOXIDE LEVEL 27 MMOL/L (20-31); CHLORIDE LEVEL 107 MMOL/L (98-107); CHOLESTEROL LEVEL 84 MG/DL (<200); CHOLESTEROL RISK RATIO 2.53 (<5); CREATININE FOR GFR 0.76 MG/DL (0.70-1.30); GLOMERULAR FILTRATION RATE > 60.0 (>35); GLUCOSE, FASTING 96 MG/DL (74-106); HDL CHOLESTEROL 33.1 MG/DL (>40); LDL CHOLESTEROL 39.5 MG/DL (<100); NON-HDL-C 50.9 MG/DL; POTASSIUM SERUM 4.2 MMOL/L (3.5-5.1); SODIUM LEVEL 141 MMOL/L (136-145); TOTAL PROTEIN 6.6 G/DL (5.7-8.2); TRIGLYCERIDES LEVEL 57 MG/DL (<150)
[2023-09-29 14:56] LABS: HEMATOCRIT 39.7 % (42.0-52.0); HEMOGLOBIN 12.4 g/dl (13.5-17.5); MEAN CORPUSCULAR HEMOGLOBIN 29.7 pg (27.0-33.0); MEAN CORPUSCULAR HGB CONC 31.2 g/dl (32.0-36.5); MEAN CORPUSCULAR VOLUME 95.2 fl (80.0-96.0); PLATELET COUNT, AUTOMATED 188 10^3/uL (150-450); RED BLOOD COUNT 4.17 10^6/uL (4.30-6.10); WHITE BLOOD COUNT 5.4 10^3/uL (4.0-10.0)
== END ==
LOC: M SFHCADAM 08:46
PROVIDERS: ATTEND Family Medicine
DX: E05.90 Thyrotoxicosis, unspecified without thyrotoxic crisis or storm (principal); D64.9 Anemia, unspecified; E78.2 Mixed hyperlipidemia; I11.9 Hypertensive heart disease without heart failure

== ENCOUNTER 2024-02-29 19:31 | Emergency (ER) | payer MEDICARE, OTHER ==
[~2024-02-29] VITALS: Ht 188 cm; Wt 84.1 kg
[2024-02-29 19:31] VITALS: TEMP 99.6
[2024-02-29] MEDS: PERCOCET 5MG/325MG TAB PO ONE (20:54)
[2024-02-29 20:59] LABS: BASO % 0.2 % (0.0-1.0); EOS # 0.1 10^3/uL (0.0-0.5); EOS % 0.5 % (0.0-3.0); HEMATOCRIT 33.9 % (42.0-52.0); HEMOGLOBIN 11.2 g/dl (13.5-17.5); LYMPH # 0.5 10^3/uL (1.5-5.0); LYMPH % 4.8 % (24.0-44.0); MEAN CORPUSCULAR HEMOGLOBIN 30.2 pg (27.0-33.0); MEAN CORPUSCULAR VOLUME 91.4 fl (80.0-96.0); MONO # 0.6 10^3/uL (0.0-0.8); MONO % 5.8 % (2.0-8.0); NEUTROPHILS # 8.4 10^3/uL (1.5-8.5); NEUTROPHILS % 88.5 % (36.0-66.0); PLATELET COUNT, AUTOMATED 165 10^3/uL (150-450); RED BLOOD COUNT 3.71 10^6/uL (4.30-6.10); WHITE BLOOD COUNT 9.5 10^3/uL (4.0-10.0)
[2024-02-29 21:11] LABS: INR 1.48; PROTHROMBIN TIME 17.5 SECONDS (12.5-14.5)
[2024-02-29 21:26] LABS: BLOOD UREA NITROGEN 18 MG/DL (9-23); CALCIUM LEVEL 8.8 MG/DL (8.3-10.6); CARBON DIOXIDE LEVEL 25 MMOL/L (20-31); CHLORIDE LEVEL 107 MMOL/L (98-107); CREATININE FOR GFR 0.76 MG/DL (0.70-1.30); GLOMERULAR FILTRATION RATE > 60.0 (>35); GLUCOSE, FASTING 113 MG/DL (74-106); POTASSIUM SERUM 4.6 MMOL/L (3.5-5.1); SODIUM LEVEL 138 MMOL/L (136-145)
[2024-02-29 23:00] VITALS: BP 117/70
[2024-02-29 23:16] VITALS: O2SAT 97
[2024-02-29] MEDS ORDERED: OXYC1TAB23 PO (23:47)
== END 2024-03-01 00:05 | disposition home or self-care (01) ==
LOC: M ED 19:31
DX: S70.12XA Contusion of left thigh, initial encounter (principal); Y92.019 Unspecified place in single-family (private) house as the place of occurrence of the external cause; Y93.9 Activity, unspecified; Y99.9 Unspecified external cause status; W19.XXXA Unspecified fall, initial encounter; I48.91 Unspecified atrial fibrillation; I10 Essential (primary) hypertension; I25.2 Old myocardial infarction; Z88.8 Allergy status to other drugs, medicaments and biological substances; Z79.1 Long term (current) use of non-steroidal anti-inflammatories (NSAID); Z79.899 Other long term (current) drug therapy

== ENCOUNTER → 2024-03-08 | Outpatient (CLI) | payer MEDICARE, OTHER ==
[~2024-03-08] MED LIST changes: +OXYC1TAB23 PO
== END ==
LOC: M ADAMS 10:16
PROVIDERS: ATTEND Family Medicine
DX: S22.42XA Multiple fractures of ribs, left side, initial encounter for closed fracture (principal); W10.9XXA Fall (on) (from) unspecified stairs and steps, initial encounter; Y92.9 Unspecified place or not applicable; Y93.9 Activity, unspecified; Y99.9 Unspecified external cause status

== ENCOUNTER → 2024-03-08 | Outpatient (REF) | payer MEDICARE, OTHER ==
[2024-03-08 13:58] LABS: HEMATOCRIT 30.2 % (42.0-52.0); HEMOGLOBIN 9.6 g/dl (13.5-17.5); MEAN CORPUSCULAR HEMOGLOBIN 30.1 pg (27.0-33.0); MEAN CORPUSCULAR HGB CONC 31.8 g/dl (32.0-36.5); MEAN CORPUSCULAR VOLUME 94.7 fl (80.0-96.0); PLATELET COUNT, AUTOMATED 235 10^3/uL (150-450); RED BLOOD COUNT 3.19 10^6/uL (4.30-6.10); WHITE BLOOD COUNT 7.6 10^3/uL (4.0-10.0)
[2024-03-08 14:03] LABS: PROSTATIC SPECIFIC AG MONITOR 1.48 NG/ML (< 4.00); THYROID STIMULATING HORMONE 0.008 uIU/ML (0.55-4.78)
[2024-03-08 14:11] LABS: ALBUMIN 3.7 G/DL (3.2-5.2); ALKALINE PHOSPHATASE 115 U/L (46-116); ALT/SGPT 28 U/L (7.0-40); AST/SGOT 22 U/L (<34); BILIRUBIN,TOTAL 1.6 MG/DL (0.3-1.2); BLOOD UREA NITROGEN 19 MG/DL (9-23); CALCIUM LEVEL 9.4 MG/DL (8.3-10.6); CARBON DIOXIDE LEVEL 25 MMOL/L (20-31); CHLORIDE LEVEL 108 MMOL/L (98-107); CREATININE FOR GFR 0.73 MG/DL (0.70-1.30); GLOMERULAR FILTRATION RATE > 60.0 (>35); GLUCOSE, FASTING 104 MG/DL (74-106); POTASSIUM SERUM 5.1 MMOL/L (3.5-5.1); SODIUM LEVEL 140 MMOL/L (136-145); TOTAL PROTEIN 6.7 G/DL (5.7-8.2)
[2024-03-08 14:17] LABS: FOLATE > 24.00 NG/ML (>5.4); VITAMIN B12 LEVEL > 2000 PG/ML (211-911)
== END ==
LOC: M SFHCADAM 09:22
PROVIDERS: ATTEND Family Medicine
DX: E53.8 Deficiency of other specified B group vitamins (principal); E04.9 Nontoxic goiter, unspecified; E05.90 Thyrotoxicosis, unspecified without thyrotoxic crisis or storm; I11.9 Hypertensive heart disease without heart failure; C61 Malignant neoplasm of prostate

== ENCOUNTER → 2024-04-13 | Outpatient (REF) | payer MEDICARE, OTHER ==
[2024-04-13 13:23] LABS: HEMATOCRIT 36.9 % (42.0-52.0); HEMOGLOBIN 11.4 g/dl (13.5-17.5); MEAN CORPUSCULAR HEMOGLOBIN 29.8 pg (27.0-33.0); MEAN CORPUSCULAR HGB CONC 30.9 g/dl (32.0-36.5); MEAN CORPUSCULAR VOLUME 96.3 fl (80.0-96.0); PERCENT SATURATION 14.3 % (19.7-50.0); PLATELET COUNT, AUTOMATED 181 10^3/uL (150-450); RED BLOOD COUNT 3.83 10^6/uL (4.30-6.10); WHITE BLOOD COUNT 6.6 10^3/uL (4.0-10.0)
[2024-04-13 13:26] LABS: FERRITIN 169.9 NG/ML (10.5-307.3)
[2024-04-14 13:31] LABS: FREE KAPPA LIGHT CHAINS SERUM 28.2 mg/L (3.3-19.4); FREE LAMBDA LIGHT CHAINS SERUM 14.1 mg/L (5.7-26.3)
== END ==
LOC: M SFHCADAM 08:38
PROVIDERS: ATTEND Family Medicine
DX: D64.9 Anemia, unspecified (principal)

== ENCOUNTER → 2024-07-07 | Outpatient (REF) | payer MEDICARE, OTHER ==
[2024-07-07 14:21] LABS: HEMATOCRIT 33.8 % (42.0-52.0); HEMOGLOBIN 10.4 g/dl (13.5-17.5); MEAN CORPUSCULAR HEMOGLOBIN 29.6 pg (27.0-33.0); MEAN CORPUSCULAR HGB CONC 30.8 g/dl (32.0-36.5); MEAN CORPUSCULAR VOLUME 96.3 fl (80.0-96.0); PLATELET COUNT, AUTOMATED 224 10^3/uL (150-450); RED BLOOD COUNT 3.51 10^6/uL (4.30-6.10); WHITE BLOOD COUNT 5.7 10^3/uL (4.0-10.0)
[2024-07-07 14:49] LABS: PROSTATIC SPECIFIC AG MONITOR 1.68 NG/ML (< 4.00)
[2024-07-07 14:53] LABS: IRON (FE) 46 UG/DL (65-175); THYROID STIMULATING HORMONE 0.008 uIU/ML (0.55-4.78)
[2024-07-07 14:54] LABS: FERRITIN 132.3 NG/ML (10.5-307.3); FOLATE 20.64 NG/ML (>5.4)
[2024-07-07 14:55] LABS: FREE T4 1.79 NG/DL (0.89-1.76); PERCENT SATURATION 15.8 % (19.7-50.0); TOTAL IRON BINDING CAPACITY 291 UG/DL (250-425); VITAMIN B12 LEVEL 1152 PG/ML (211-911)
[2024-07-07 14:57] LABS: ALBUMIN 3.4 G/DL (3.2-5.2); ALKALINE PHOSPHATASE 105 U/L (40-129); ALT/SGPT 14 U/L (7.0-40); AST/SGOT 12 U/L (<34); BILIRUBIN,TOTAL 0.6 MG/DL (0.3-1.2); BLOOD UREA NITROGEN 19 MG/DL (9-23); CALCIUM LEVEL 9.2 MG/DL (8.3-10.6); CARBON DIOXIDE LEVEL 26 MMOL/L (20-31); CHLORIDE LEVEL 109 MMOL/L (98-107); CHOLESTEROL LEVEL 80 MG/DL (<200); CHOLESTEROL RISK RATIO 2.43 (<5); CREATININE FOR GFR 0.76 MG/DL (0.70-1.30); GLOMERULAR FILTRATION RATE > 60.0 (>35); GLUCOSE, FASTING 108 MG/DL (74-106); HDL CHOLESTEROL 32.8 MG/DL (>40); NON-HDL-C 47.2 MG/DL; POTASSIUM SERUM 4.2 MMOL/L (3.5-5.1); SODIUM LEVEL 144 MMOL/L (136-145); TOTAL PROTEIN 6.7 G/DL (5.7-8.2); TRIGLYCERIDES LEVEL 46 MG/DL (<150)
== END ==
LOC: M SFHCADAM 10:20
PROVIDERS: ATTEND Family Medicine
DX: D64.9 Anemia, unspecified (principal); D51.8 Other vitamin B12 deficiency anemias; I11.9 Hypertensive heart disease without heart failure; I25.10 Atherosclerotic heart disease of native coronary artery without angina pectoris; E05.90 Thyrotoxicosis, unspecified without thyrotoxic crisis or storm; C61 Malignant neoplasm of prostate

== ENCOUNTER → 2024-08-24 | Outpatient (REF) | payer MEDICARE, OTHER ==
[~2024-08-24] MED LIST changes: +METH-1386 PO; +METH-1387 PO; -METH10TA PO; -METH25TAB PO
[2024-08-24 12:04] LABS: BASO % 0.7 % (0.0-1.0); EOS # 0.1 10^3/uL (0.0-0.5); EOS % 1.6 % (0.0-3.0); HEMATOCRIT 36.1 % (42.0-52.0); HEMOGLOBIN 11.4 g/dl (13.5-17.5); LYMPH # 0.9 10^3/uL (1.5-5.0); LYMPH % 20.1 % (24.0-44.0); MEAN CORPUSCULAR HGB CONC 31.6 g/dl (32.0-36.5); MEAN CORPUSCULAR VOLUME 91.9 fl (80.0-96.0); MONO # 0.3 10^3/uL (0.0-0.8); MONO % 5.9 % (2.0-8.0); NEUTROPHILS # 3.1 10^3/uL (1.5-8.5); NEUTROPHILS % 71.5 % (36.0-66.0); PLATELET COUNT, AUTOMATED 190 10^3/uL (150-450); RED BLOOD COUNT 3.93 10^6/uL (4.30-6.10); WHITE BLOOD COUNT 4.4 10^3/uL (4.0-10.0)
[2024-08-24 12:07] LABS: FREE T4 1.36 NG/DL (0.89-1.76); THYROID STIMULATING HORMONE < 0.010 uIU/ML (0.55-4.78)
[2024-08-25 06:47] LABS: PROTEIN, TOTAL SO 6.7 g/dL (6.1-8.1)
== END ==
LOC: M LAB REF 11:10 → M SHH 11:10
PROVIDERS: ATTEND Physician Assistant
DX: D60.8 Other acquired pure red cell aplasias (principal); E05.90 Thyrotoxicosis, unspecified without thyrotoxic crisis or storm; E04.9 Nontoxic goiter, unspecified; D80.8 Other immunodeficiencies with predominantly antibody defects

== ENCOUNTER → 2024-12-26 | Outpatient (CLI) | payer MEDICARE, OTHER | LOC: M RAD 10:19 | PROVIDERS: ATTEND Physician Assistant | DX: L97.322 Non-pressure chronic ulcer of left ankle with fat layer exposed (principal) ==

== ENCOUNTER → 2025-03-20 | Outpatient (CLI) | payer MEDICARE, OTHER ==
[~2025-03-20] MED LIST changes: +ELIQ5TAB PO; +LIDOCAINE 1% MDV 20 ML VIAL SC SCH
[2025-03-20 09:00] VITALS: TEMP 98.3
[2025-03-20 12:00] VITALS: BP 124/73; O2SAT 97
== END ==
LOC: M IRPRO 08:40
PROVIDERS: ATTEND Registered Nurse School
DX: I87.312 Chronic venous hypertension (idiopathic) with ulcer of left lower extremity (principal)

== ENCOUNTER → 2025-03-23 | Outpatient (CLI) | payer MEDICARE, OTHER ==
[~2025-03-23] MED LIST changes: -LIDOCAINE 1% MDV 20 ML VIAL SC SCH
== END ==
LOC: M RAD 13:26
PROVIDERS: ATTEND Radiology Diagnostic Radiology
DX: I87.2 Venous insufficiency (chronic) (peripheral) (principal)

== ENCOUNTER → 2025-04-02 | Outpatient (POV) | payer MEDICARE, OTHER ==
[~2025-04-02] VITALS: Ht 188 cm; Wt 88.6 kg
[2025-04-02 10:40] VITALS: BP 110/70; O2SAT 99
== END ==
LOC: M IRPOV 10:13
PROVIDERS: ATTEND Registered Nurse School
DX: Z48.812 Encounter for surgical aftercare following surgery on the circulatory system (principal); I87.312 Chronic venous hypertension (idiopathic) with ulcer of left lower extremity; L97.929 Non-pressure chronic ulcer of unspecified part of left lower leg with unspecified severity; Z88.1 Allergy status to other antibiotic agents

== ENCOUNTER → 2025-04-19 | Outpatient (CLI) | payer MEDICARE, OTHER | LOC: M RAD 13:14 | PROVIDERS: ATTEND Radiology Diagnostic Radiology | DX: I87.2 Venous insufficiency (chronic) (peripheral) (principal); I82.812 Embolism and thrombosis of superficial veins of left lower extremity ==

== ENCOUNTER → 2025-04-25 | Outpatient (POV) | payer MEDICARE, OTHER ==
[~2025-04-25] VITALS: Ht 188 cm; Wt 86.4 kg
[2025-04-25 13:33] VITALS: BP 118/68; O2SAT 98
== END ==
LOC: M IRPOV 13:14
PROVIDERS: ATTEND Registered Nurse School
DX: Z48.812 Encounter for surgical aftercare following surgery on the circulatory system (principal); I87.2 Venous insufficiency (chronic) (peripheral); L97.929 Non-pressure chronic ulcer of unspecified part of left lower leg with unspecified severity

== ENCOUNTER → 2025-06-12 | Outpatient (REF) | payer MEDICARE, OTHER | LOC: M SFHCADAM 14:19 | PROVIDERS: ATTEND Family Medicine | DX: I25.10 Atherosclerotic heart disease of native coronary artery without angina pectoris (principal); E05.90 Thyrotoxicosis, unspecified without thyrotoxic crisis or storm; E04.9 Nontoxic goiter, unspecified; E78.2 Mixed hyperlipidemia; C61 Malignant neoplasm of prostate; Z53.9 Procedure and treatment not carried out, unspecified reason ==

== ENCOUNTER → 2025-06-13 | Outpatient (REF) | payer MEDICARE, OTHER ==
[2025-06-13 11:20] LABS: PLATELET COUNT, AUTOMATED 167 10^3/uL (150-450)
[2025-06-13 11:41] LABS: PROSTATIC SPECIFIC AG MONITOR 2.23 NG/ML (< 4.00)
[2025-06-13 11:44] LABS: ALT/SGPT 20 U/L (7.0-40); AST/SGOT 24 U/L (<34); CALCIUM LEVEL 9.4 MG/DL (8.3-10.6); CARBON DIOXIDE LEVEL 27 MMOL/L (20-31); CHLORIDE LEVEL 105 MMOL/L (98-107); CHOLESTEROL LEVEL 96 MG/DL (<200); CHOLESTEROL RISK RATIO 2.61 (<5); CREATININE FOR GFR 0.72 MG/DL (0.70-1.30); GLOMERULAR FILTRATION RATE 87.3 (>35); LDL CHOLESTEROL 49.1 MG/DL (<100); NON-HDL-C 59.3 MG/DL; POTASSIUM SERUM 4.4 MMOL/L (3.5-5.1); SODIUM LEVEL 143 MMOL/L (136-145); TRIGLYCERIDES LEVEL 51 MG/DL (<150)
[2025-06-13 11:45] LABS: FREE T4 1.43 NG/DL (0.89-1.76)
== END ==
LOC: M SFHCADAM 10:45
PROVIDERS: ATTEND Family Medicine
DX: I25.10 Atherosclerotic heart disease of native coronary artery without angina pectoris (principal); E78.2 Mixed hyperlipidemia; E05.90 Thyrotoxicosis, unspecified without thyrotoxic crisis or storm; C61 Malignant neoplasm of prostate; E04.9 Nontoxic goiter, unspecified

== ENCOUNTER → 2025-07-25 | Outpatient (POV) | payer MEDICARE, OTHER | LOC: M IRPOV 09:00 | PROVIDERS: ATTEND Radiology Diagnostic Radiology | DX: I83.029 Varicose veins of left lower extremity with ulcer of unspecified site (principal); L97.929 Non-pressure chronic ulcer of unspecified part of left lower leg with unspecified severity; Z80.42 Family history of malignant neoplasm of prostate; Z80.3 Family history of malignant neoplasm of breast; Z87.891 Personal history of nicotine dependence ==